=== PATIENT | female | born 1990 | race Caucasian/White ===

== ENCOUNTER 2016-02-21 13:37 | Emergency (ER) | payer BC, OTHER ==
[~2016-02-21] VITALS: Ht 170.2 cm; Wt 115.3 kg
[~2016-02-21 13:37] MED LIST: CLOMID PO; LEVE750T PO
[2016-02-21 13:40] VITALS: TEMP 36.8; Ht 170.2 cm; Wt 115.3 kg
[2016-02-21] MEDS ORDERED: CLOM25CA2 PO (13:52)
[2016-02-21 14:47] LABS: URINE APPEARANCE CLEAR (CLEAR); URINE BILIRUBIN NEG (NEG); URINE COLOR DK YELLOW; URINE EPITHELIAL CELL AUTO >30 /lpf (0-5); URINE NITRITE NEG (NEG); URINE PH 6.5 (4.5-7.5); URINE SPECIFIC GRAVITY 1.025 (1.000-1.030); UROBILINOGEN NEG (NEG); ZZUR CULT IF INDIC CLEAN CATCH YES
[2016-02-21 14:51] LABS: MANUAL MICROSCOPIC REQUIRED? NO; REVIEW REQ? YES
[2016-02-21 14:58] LABS: BASO % 0.3 %; BASO ABS # 0.02 K/uL (0-0.2); COMPLETE YES; EOS % 1.6 %; HEMATOCRIT 42.7 % (37-47); IG% 0.2 %; LYMPH ABS # 2.47 K/uL (1.2-3.4); MEAN CELL VOLUME 86.4 fL (80-100); MEAN CORPUSCULAR HEMOGLOBIN 29.4 pg (25-34); MEAN PLATELET VOLUME 13.1 fL (7.4-10.4); MONO % 7.3 %; NEUT % 47.6 %; PLATELET COUNT 198 K/uL (130-400); RED BLOOD COUNT 4.94 M/uL (4.2-5.4); WHITE BLOOD COUNT 5.75 K/uL (4.8-10.8)
[2016-02-21] MEDS ORDERED: GI COCKTAIL PO STA (15:04)
[2016-02-21] MEDS ORDERED: SODIUM CHLORIDE 0.9% 1000ML 1,000 ML IV STA (15:04)
[2016-02-21] MEDS ORDERED: CEFTRIAXONE SOD INJ 1 GM ADDVIAL IV STA (15:04)
--- NOTE | 2016-02-21 15:08 | EMERGENCY ROOM VISIT NOTE ---
History Report prepared by Hilda: Chandan Reina Under the Supervision of: Dr. Adama Webster M.D. First contact with patient: 14:00 Chief Complaint: ABDOMINAL PAIN Stated Complaint: ABD PAIN Nursing Triage Summary: Pt presents with right sided abd pain with nausea. Pain radiates to back. Burning with urination, urgency. Sx began 2 days ago. History of Present Illness The patient is a 25 year old female who presents to the Emergency Room with complaints of worsening waxing and waning right upper quadrant abdominal pain for the past two days. The patient currently rates her discomfort as a 6/10 in severity. She additionally states that she has had some nausea. The patient denies any vomiting, diarrhea, or fever. The patient states that she has recently increased her dosage of Clomid to try to increase her fertility. The patient states that she has a history of a cholecystectomy and seizures when she was younger. She states that nothing makes it better or worse. She additionally states that she has had a decrease in appetite. Source of History: patient Onset: two days ago Position: abdomen (RUQ) Symptom Intensity: 6/10 Timing: waxes/wanes Associated Symptoms: + nausea, No diarrhea, No fevers, No vomiting Review of Systems See HPI for pertinent positives & negatives. A total of 10 systems reviewed and were otherwise negative. Past Medical & Surgical Medical Problems: (1) Compression fracture of lumbar spine (2) Generalized epilepsy (3) Polycystic kidney disease, adult type Family History FHx: cancer FHx: diabetes FHx: gallbladder disease FHx: heart disease FHx: hypertension FHx: kidney disease/stones FHx: seizures Social History Smoking Status: Never Smoker Alcohol Use: none Marital Status: in relationship Housing Status: lives with family Occupation Status: employed, student Current/Historical Medications Scheduled Clomipramine Hcl (Clomipramine Hcl), 100 MG PO UD Famotidine (Pepcid), 40 MG PO HS Sulfa/Trimethoprim (Bactrim Ds 800MG/160MG), 1 TAB PO BID Allergies Coded Allergies: Aspirin (Verified Allergy, Intermediate, ITCHING, 02/21/16) Prochlorperazine (Verified Allergy, Mild, Itching, hives, n/v, 02/21/16) Physical Exam Vital Signs Date Time Temp Pulse Resp B/P Pulse Ox O2 Delivery O2 Flow Rate FiO2 02/21/16 16:45 79 18 125/72 99 Room Air 02/21/16 16:26 73 02/21/16 15:19 80 16 127/72 99 Room Air 02/21/16 13:40 36.8 88 18 120/82 98 Room Air Physical Exam GENERAL: Patient is a healthy-appearing well-nourished HEAD: Normocephalic atraumatic EYES: Ocular movements intact pupils equal and react to light OROPHARYNX mucous membranes are moist no exudates present no erythema or edema present NECK: Supple no nuchal rigidity CHEST: Good equal expansion LUNGS: Clear and equal to auscultation CARDIAC: Normal S1 and S2 ABDOMEN: Mild tenderness in the epigastric region. Soft no guarding BACK: No CVA tenderness EXTREMITIES: No pain upon palpation normal muscle strength in all groups no clubbing cyanosis or edema NEURO: Patient is following commands is answering questions appropriately. Alert and oriented x3 Cranial Nerves 2-12 grossly intact Medical Decision & Procedures ER Provider Diagnostic Interpretation: CT results as stated below per my review and radiologist interpretation: CT SCAN OF THE BRAIN WITHOUT IV CONTRAST CLINICAL HISTORY: Change in mental status. Amnesia. COMPARISON STUDY: CT of the brain dated 01/08/2013. TECHNIQUE: Unenhanced axial CT scan of the brain is performed from the vertex to the skull base. Automated dose control exposure was utilized. CT DOSE: 537.48 mGy.cm FINDINGS: Brain parenchyma: The brain parenchyma is normal in appearance. There is no hemorrhage, mass effect, or evidence of acute territorial ischemia by CT criteria. Luis-white matter is preserved. No extra-axial fluid collection is seen. A coarse calcification is again noted in the left cerebellar hemisphere, unchanged from previous. Ventricles, sulci, cisterns: Normal in configuration. Intracranial vasculature: The visualized intracranial vasculature at the skull base is normal in appearance. Calvarium: Unremarkable. Sinuses and mastoids: The visualized paranasal sinuses are clear. The mastoid air cells are well pneumatized. Orbits: The bony orbits are grossly intact. IMPRESSION: No acute intracranial abnormality. Electronically signed by: Lenard Burrell M.D. 02/21/2016 4:18 PM Dictated Date/Time: 02/21/2016 4:[address] SCAN OF THE ABDOMEN AND PELVIS WITH IV CONTRAST CLINICAL HISTORY: Epigastric abdominal pain. COMPARISON STUDY: Abdominal CT scans dated 08/03/2015 and 08/05/2012. TECHNIQUE: Following the IV administration of 116 cc of Optiray 320, CT scan of the abdomen and pelvis is performed from the lung bases to the proximal femora. Images are reviewed in the axial, sagittal, and coronal planes. IV contrast was administered without complication. Automated dose control exposure was utilized. The examination is mildly degraded by large body habitus, and by streak artifact from the patient's body wall abutting the CT gantry. CT DOSE: 1122.60 mGy.cm FINDINGS: Lung bases: The heart is normal in size and without pericardial effusion. The lung bases are clear. Liver: The contrast-enhanced liver is enlarged, measuring 20 cm in craniocaudal length. The liver demonstrates diffusely diminished attenuation consistent with hepatic steatosis. There is no intrahepatic biliary ductal dilatation. The hepatic veins and portal veins are patent. Gallbladder: Surgically absent noting clips in the gallbladder fossa. Spleen: Normal in size and attenuation. Pancreas: Unremarkable. Adrenal glands: Unremarkable. Kidneys: The contrast enhanced kidneys are mildly enlarged and without hydronephrosis. The kidneys enhance symmetrically. There are numerous (greater than 30) bilateral renal cysts measuring up to 3.9 cm. Numerous additional subcentimeter cortical hypodensities also likely represent cysts but are too small for definitive characterization. Some of these contain small internal calcifications. A nonobstructing calculus is present in the left lower pole. Abdominal vasculature: The abdominal aorta is normal in course and caliber. Bowel: The small bowel and colon are normal in course and caliber. The appendix is well-visualized and normal. Peritoneum: There is no intraperitoneal free air or abdominal ascites. There is a fat-containing umbilical hernia. Lymphadenopathy: None. Pelvic viscera: The bladder, uterus, and adnexa are normal as visualized. Bilateral ovarian follicles are noted. There is trace free fluid in the cul-de-sac. Skeletal structures: No lytic or blastic lesions are seen. Mild anterior wedging of several lower thoracic vertebral bodies is again noted. IMPRESSION: 1. There are no acute infectious or inflammatory findings in the abdomen or pelvis. 2. There are numerous bilateral renal cysts and too small to characterize cortical hypodensities. These are much greater in number the expected for age, and some of these have increased in size from the 08/03/2015 examination. The overall appearance remains highly concerning for autosomal dominant polycystic kidney disease. 3. Hepatomegaly and hepatic steatosis. 4. There is trace free fluid in the cul-de-sac, likely within physiologic limits. Electronically signed by: Lenard Burrell M.D. 02/21/2016 4:29 PM Dictated Date/Time: 02/21/2016 4:23 PM Laboratory Results 02/21/16 13:55 Red Blood Count 4.94, Mean Corpuscular Volume 86.4, Mean Corpuscular Hemoglobin 29.4, Mean Corpuscular Hemoglobin Concent 34.0, Mean Platelet Volume 13.1, Neutrophils (%) (Auto) 47.6, Lymphocytes (%) (Auto) 43.0, Monocytes (%) (Auto) 7.3, Eosinophils (%) (Auto) 1.6, Basophils (%) (Auto) 0.3, Neutrophils # (Auto) 2.74, Lymphocytes # (Auto) 2.47, Monocytes # (Auto) 0.42, Eosinophils # (Auto) 0.09, Basophils # (Auto) 0.02 02/21/16 13:55 Test 02/21/16 13:55 02/21/16 14:15 White Blood Count 5.75 K/uL (4.8-10.8) Red Blood Count 4.94 M/uL (4.2-5.4) Hemoglobin 14.5 g/dL (12.0-16.0) Hematocrit 42.7 % (37-47) Mean Corpuscular Volume 86.4 fL (80-100) Mean Corpuscular Hemoglobin 29.4 pg (25-34) Mean Corpuscular Hemoglobin Concent 34.0 g/dl (32-36) Platelet Count 198 K/uL (130-400) Mean Platelet Volume 13.1 fL (7.4-10.4) Neutrophils (%) (Auto) 47.6 % Lymphocytes (%) (Auto) 43.0 % Monocytes (%) (Auto) 7.3 % Eosinophils (%) (Auto) 1.6 % Basophils (%) (Auto) 0.3 % Neutrophils # (Auto) 2.74 K/uL (1.4-6.5) Lymphocytes # (Auto) 2.47 K/uL (1.2-3.4) Monocytes # (Auto) 0.42 K/uL (0.11-0.59) Eosinophils # (Auto) 0.09 K/uL (0-0.5) Basophils # (Auto) 0.02 K/uL (0-0.2) RDW Standard Deviation 41.2 fL (36.4-46.3) RDW Coefficient of Variation 12.9 % (11.5-14.5) Immature Granulocyte % (Auto) 0.2 % Immature Granulocyte # (Auto) 0.01 K/uL (0.00-0.02) Anion Gap 11.0 mmol/L (3-11) Est Creatinine Clear Calc Drug Dose 172.4 ml/min Estimated GFR () 143.3 Estimated GFR (Non- 123.6 BUN/Creatinine Ratio 16.7 (10-20) Calcium Level 9.2 mg/dl (8.5-10.1) Total Bilirubin 0.3 mg/dl (0.2-1) Direct Bilirubin < 0.1 mg/dl (0-0.2) Aspartate Amino Transf (AST/SGOT) 19 U/L (15-37) Alanine Aminotransferase (ALT/SGPT) 49 U/L (12-78) Alkaline Phosphatase 73 U/L (45-117) Total Protein 7.2 gm/dl (6.4-8.2) Albumin 3.7 gm/dl (3.4-5.0) Lipase 143 U/L (73-393) Urine Color DK YELLOW Urine Appearance CLEAR (CLEAR) Urine pH 6.5 (4.5-7.5) Urine Specific [place] 1.025 (1.000-1.030) Urine Protein NEG (NEG) Urine Glucose (UA) NEG (NEG) Urine Ketones NEG (NEG) Urine Occult Blood NEG (NEG) Urine Nitrite NEG (NEG) Urine Bilirubin NEG (NEG) Urine Urobilinogen NEG (NEG) Urine Leukocyte Esterase SMALL (NEG) Urine WBC (Auto) 10-30 /hpf (0-5) Urine RBC (Auto) 0-4 /hpf (0-4) Urine Hyaline Casts (Auto) 10-30 /lpf (0-5) Urine Epithelial Cells (Auto) >30 /lpf (0-5) Urine Bacteria (Auto) 1+ (NEG) Urine Yeast (Auto) (NONE PRSENT) Urine Test NEG (NEG) Labs reviewed by ED physician. Medications Administered Medications (Trade) Dose Ordered Sig/Piper Route Start Time Stop Time Status Last Admin Dose Admin Famotidine (Pepcid Tab) 20 mg NOW ONCE PO 02/21/16 15:15 02/21/16 15:16 DC 02/21/16 15:22 20 MG Sucralfate (Carafate Tab) 1 gm NOW ONCE PO 02/21/16 15:15 02/21/16 15:16 DC 02/21/16 15:23 1 GM Ceftriaxone Sodium 1 gm 1 gm NOW STAT IV 02/21/16 15:04 02/21/16 15:07 DC 02/21/16 15:23 1 GM Sodium Chloride (Nss 1000ml) 1,000 ml @ 999 mls/hr Q1H1M STAT IV 02/21/16 15:04 02/21/16 16:04 DC 02/21/16 15:24 999 MLS/HR Al Hydroxide/Mg Hydroxide (Maalox Susp) 30 ml STK-MED ONCE .ROUTE 02/21/16 15:15 02/21/16 15:17 DC 02/21/16 15:23 30 ML Lidocaine HCl (Viscous Lidocaine 2% Soln) 20 ml STK-MED ONCE .ROUTE 02/21/16 15:16 02/21/16 15:17 DC 02/21/16 15:22 20 ML ECG Indication: abdominal pain Rate (beats per minute): 58 Rhythm: sinus bradycardia Findings: no acute ischemic change, no ectopy ED Course 1450: Past medical records reviewed. The patient was evaluated in room B5. A complete history and physical examination was performed. 1504: Sodium Chloride 1000 ml @ 999 mls/hr IV, Rocephin Inj 1 gm IV, GI Cocktail 24ml PO 1515: Carafate Tab 1 gm PO, Pepcid Tab 20mg PO 1516: Viscous Lidocaine 2% Soln 20ml 1659: Upon reexamination the patient is resting. I discussed results and treatment plan with the patient. She verbalizes agreement and understanding. The patient is ready for discharge. Medical Decision Differential diagnosis: Etiologies such as appendicitis, diverticulitis, PUD, biliary pathology, UTI, pancreatitis, obstruction, mesenteric ischemia, aortic pathology, infections, inflammatory bowel disease, renal colic, as well as others were entertained. This is a 25-year-old female who presents emergency department complaining of multiple complaints. The patient reports she had. Amnesia last night where she does not remember anything. She does have a remote history of seizures in the past. I believe this could possibly be from the patient being half-asleep however she was sent for CAT scan of the which didn't show any evidence of acute injury. The patient regardless is at her baseline now and I feel can probably follow up with neurology. In addition the patient is also complaining of epigastric pain. CT of the abdomen pelvis does not show any acute process however she was given GI cocktail, Pepcid and Carafate in the emergency department. Repeat examination revealed much improvement the patient's symptoms. I do feel that the patient can most likely be sent home on a GI cocktail along with a clear liquid diet for the next 48 hours. I will start the patient on antibiotic for her urinary tract infection. In addition she will also be placed on Bactrim. Patient is in agreement with the treatment plan. Impression Primary Impression: UTI (urinary tract infection) Additional Impressions: Epigastric pain Autosomal dominant polycystic kidney disease Scribe Attestation The scribe's documentation has been prepared under my direction and personally reviewed by me in its entirety. I confirm that the note above accurately reflects all work, treatment, procedures, and medical decision making performed by me. Departure Information Dispostion Home / Self-Care Prescriptions Famotidine (Pepcid) 40 Mg Tab 40 MG PO HS for 10 Days, #10 TAB Prov: Adama Webster MD 02/21/16 Sulfa/Trimethoprim (Bactrim Ds 800MG/160MG) Tab 1 TAB PO BID for 7 Days, #14 TAB Prov: Adama Webster MD 02/21/16 Referrals Deni Santiago JR., M.D. (PCP) Forms HOME CARE DOCUMENTATION FORM, IMPORTANT VISIT INFORMATION Patient Instructions ED Diet Clear Liquid, ED Epigastric Pain UKO, ED UTI Cystitis Female, [facility] Additional Instructions Take 5 ml Maalox before every meal and at bedtime Clear liquid diet next 48 hours Follow up with Tasha's office for syncopal episode Follow up with Dr Contreras's office for continued abd pain You have been examined and treated today on an emergency basis only. This is not a substitute for, or an effort to provide, complete comprehensive medical care. It is impossible to recognize and treat all injuries or illnesses in a single emergency department visit. It is therefore important that you follow up closely with Dr Santiago. Call as soon as possible for an appointment. Thank you for your time and consideration. I look forward to speaking with you again soon. Please don't hesitate to call us if you have any questions. Problem Qualifiers Primary Impression: UTI (urinary tract infection) Urinary tract infection type: acute cystitis Hematuria presence: without hematuria Qualified Codes: N30.00 - Acute cystitis without hematuria
[2016-02-21 15:11] LABS: ALT/SGPT 49 U/L (12-78); BLOOD UREA NITROGEN 11 mg/dl (7-18); BUN/CREATININE RATIO 16.7 (10-20); CALCIUM 9.2 mg/dl (8.5-10.1); CARBON DIOXIDE 27 mmol/L (21-32); CHLORIDE 107 mmol/L (98-107); CREATININE 0.66 mg/dl (0.60-1.20); GLUCOSE 95 mg/dl (70-99); POTASSIUM 3.8 mmol/L (3.5-5.1); SODIUM 145 mmol/L (136-145)
[2016-02-21 15:14] LABS: ALKALINE PHOSPHATASE 73 U/L (45-117); AST/SGOT 19 U/L (15-37)
[2016-02-21] MEDS ORDERED: SUCRALFATE 1 GM TAB PO ONE (15:15)
[2016-02-21] MEDS ORDERED: ALUMINUM/MAGNESIUM SUSP 30 ML UDC ONE (15:15)
[2016-02-21] MEDS ORDERED: FAMOTIDINE 20 MG TAB PO ONE (15:15)
[2016-02-21] MEDS ORDERED: LIDOCAINE HCL 2% VISC SOLN 20 ML UDC ONE (15:16)
[2016-02-21] MEDS ORDERED: OPTIRAY 320 IV PRN (15:30)
--- NOTE | 2016-02-21 16:20 | DIAGNOSTIC IMAGING REPORT ---
CT SCAN OF THE BRAIN WITHOUT IV CONTRAST CLINICAL HISTORY: Change in mental status. Amnesia. COMPARISON STUDY: CT of the brain dated 01/08/2013. TECHNIQUE: Unenhanced axial CT scan of the brain is performed from the vertex to the skull base. Automated dose control exposure was utilized. CT DOSE: 537.48 mGy.cm FINDINGS: Brain parenchyma: The brain parenchyma is normal in appearance. There is no hemorrhage, mass effect, or evidence of acute territorial ischemia by CT criteria. Luis-white matter is preserved. No extra-axial fluid collection is seen. A coarse calcification is again noted in the left cerebellar hemisphere, unchanged from previous. Ventricles, sulci, cisterns: Normal in configuration. Intracranial vasculature: The visualized intracranial vasculature at the skull base is normal in appearance. Calvarium: Unremarkable. Sinuses and mastoids: The visualized paranasal sinuses are clear. The mastoid air cells are well pneumatized. Orbits: The bony orbits are grossly intact. IMPRESSION: No acute intracranial abnormality. Electronically signed by: Lenard Burrell M.D. 02/21/2016 4:18 PM Dictated Date/Time: 02/21/2016 4:16 PM
--- NOTE | 2016-02-21 16:30 | DIAGNOSTIC IMAGING REPORT ---
CT SCAN OF THE ABDOMEN AND PELVIS WITH IV CONTRAST CLINICAL HISTORY: Epigastric abdominal pain. COMPARISON STUDY: Abdominal CT scans dated 08/03/2015 and 08/05/2012. TECHNIQUE: Following the IV administration of 116 cc of Optiray 320, CT scan of the abdomen and pelvis is performed from the lung bases to the proximal femora. Images are reviewed in the axial, sagittal, and coronal planes. IV contrast was administered without complication. Automated dose control exposure was utilized. The examination is mildly degraded by large body habitus, and by streak artifact from the patient's body wall abutting the CT gantry. CT DOSE: 1122.60 mGy.cm FINDINGS: Lung bases: The heart is normal in size and without pericardial effusion. The lung bases are clear. Liver: The contrast-enhanced liver is enlarged, measuring 20 cm in craniocaudal length. The liver demonstrates diffusely diminished attenuation consistent with hepatic steatosis. There is no intrahepatic biliary ductal dilatation. The hepatic veins and portal veins are patent. Gallbladder: Surgically absent noting clips in the gallbladder fossa. Spleen: Normal in size and attenuation. Pancreas: Unremarkable. Adrenal glands: Unremarkable. Kidneys: The contrast enhanced kidneys are mildly enlarged and without hydronephrosis. The kidneys enhance symmetrically. There are numerous (greater than 30) bilateral renal cysts measuring up to 3.9 cm. Numerous additional subcentimeter cortical hypodensities also likely represent cysts but are too small for definitive characterization. Some of these contain small internal calcifications. A nonobstructing calculus is present in the left lower pole. Abdominal vasculature: The abdominal aorta is normal in course and caliber. Bowel: The small bowel and colon are normal in course and caliber. The appendix is well-visualized and normal. Peritoneum: There is no intraperitoneal free air or abdominal ascites. There is a fat-containing umbilical hernia. Lymphadenopathy: None. Pelvic viscera: The bladder, uterus, and adnexa are normal as visualized. Bilateral ovarian follicles are noted. There is trace free fluid in the cul-de-sac. Skeletal structures: No lytic or blastic lesions are seen. Mild anterior wedging of several lower thoracic vertebral bodies is again noted. IMPRESSION: 1. There are no acute infectious or inflammatory findings in the abdomen or pelvis. 2. There are numerous bilateral renal cysts and too small to characterize cortical hypodensities. These are much greater in number the expected for age, and some of these have increased in size from the 08/03/2015 examination. The overall appearance remains highly concerning for autosomal dominant polycystic kidney disease. 3. Hepatomegaly and hepatic steatosis. 4. There is trace free fluid in the cul-de-sac, likely within physiologic limits. Electronically signed by: Lenard Burrell M.D. 02/21/2016 4:29 PM Dictated Date/Time: 02/21/2016 4:23 PM
[2016-02-21 16:45] VITALS: BP 125/72; PULSE 79; O2SAT 99
[2016-02-21] MEDS ORDERED: FAMO40TA6 PO (16:57)
[2016-02-21] MEDS ORDERED: SULF800T23 PO (16:57)
== END 2016-02-21 17:14 | disposition home or self-care (01) ==
LOC: C.EDB 13:38
DX: N39.0 Urinary tract infection, site not specified (principal); R10.13 Epigastric pain; Q61.2 Polycystic kidney, adult type; G40.909 Epilepsy, unspecified, not intractable, without status epilepticus; Z83.3 Family history of diabetes mellitus; Z82.49 Family history of ischemic heart disease and other diseases of the circulatory system; Z82.0 Family history of epilepsy and other diseases of the nervous system; Z79.899 Other long term (current) drug therapy

== ENCOUNTER 2016-10-14 13:41 | Emergency (ER) | payer OTHER ==
[~2016-10-14] VITALS: Ht 170.2 cm; Wt 118.0 kg
[~2016-10-14 13:41] MED LIST changes: +CLOM25CA2 PO; -CLOMID PO; -LEVE750T PO
[2016-10-14 13:47] VITALS: TEMP 36.5; O2SAT 99; Ht 170.2 cm; Wt 118.0 kg
[2016-10-14] MEDS ORDERED: IBUPROFEN 600 MG TAB PO STA (14:16)
[2016-10-14 14:58] VITALS: BP 128/94; PULSE 89
--- NOTE | 2016-10-14 15:40 | EMERGENCY ROOM VISIT NOTE ---
ED Visit Note First contact with patient: 13:59 CHIEF COMPLAINT: Bee sting HISTORY OF PRESENT ILLNESS: This 25-year-old female patient presents to the emergency department after sustaining a bumble bee sting to the left side of face while at work approximately one hour prior to arrival in the emergency department today. The patient complains of swelling and 3/10 pain over the site. The patient also notes redness surrounding the area. No other stings sustained. The stinger is not in place. The patient denies hives, perioral numbness or tingling, throat, tongue, or lip swelling or difficulty breathing. She became concerned, as she apparently does have a history of anaphylaxis or allergies to yellow jackets as a child, however, the patient is uncertain which. She does deny anaphylaxis symptoms as a child. The patient states normally, when she gets stung, she is able to take Benadryl and her symptoms go away relatively quickly. The patient states she was at work today, so do not have access to Benadryl. She did come in by ambulance. She has taken nothing for pain or swelling. No other complaints. REVIEW OF SYSTEMS: A 10 system review of systems was performed with positives and pertinent negatives listed in the history of present illness. All other systems were reviewed and are negative. ALLERGIES: Aspirin, Compazine, yellow jackets MEDICATIONS: None PMH: Polycystic kidney disease PHYSICAL EXAM: Vital Signs reviewed, see Nurse's notes, vital signs stable. GENERAL: This is a 25-year-old female, alert, oriented, no acute distress, and cooperative. HEENT: Normocephalic, atraumatic, no facial edema. Lips, tongue, and mucosa normal. NECK: No stridor. RESPIRATORY: Clear to auscultation. No wheezes, rhonchi, or rales. No difficulty with breathing noted. CARDIAC: RRR, no murmurs, gallops, or rubs noted. No tachycardia noted. SKIN: There is an very mild, erythematous, minimally tender, minimally indurated area located on the patient's left forehead. No significant rashes or urticaria noted. The stinger is not in place. No purulent drainage or signs of infection. NEURO: Pt. alert and oriented to person, place, time, event. Normal sensation to light and sharp touch. No focal neurological deficits. EMERGENCY DEPARTMENT COURSE AND DECISION MAKING: I examined the patient. The patient presented with an isolated hymenopteran envenomation. Differential diagnosis includes local reaction, anaphylactic reaction, infection, as well as other pathologies. The physical is benign and this appears to be isolated to a local reaction. ER Treatment: Diphenhydramine 50mg PO and ibuprofen 600mg PO. The patient was observed for 90 minutes with no adverse reaction or suspicions for anaphylaxis. Discharge instructions reviewed. The patient was discharged home in stable condition. DIAGNOSIS: Hymenopteran envenomation DISCHARGE INSTRUCTIONS: You should take Benadryl (diphenhydramine) 50 mgs every 6 hours for the next 3 days. You can find this medicine [id number]. Benadryl can help reduce your symptoms. You should take it for the next 3 days or until your symptoms have subsided. Be aware that Benadryl can make you drowsy. Ibuprofen(Motrin, Advil) may be used for fever or pain. Use 600mg every six hours as needed. Take with food. Avoid using more than 2400mg in a 24 hour period. Do not use 2400mg per day for more than three consecutive days without physician direction. Prolonged inappropriate use can lead to stomach upset or ulcers. (AND/OR) Acetaminophen(Tylenol) may be used for fever or pain. Use 1000mg every six hours as needed. Avoid using more than 3000mg in a 24 hour period. Return to the emergency department for any difficulty breathing, swelling of the lips, numbness or tingling, blue extremities, dizziness, passing out, increased swelling, redness, or purulent drainage from the site of the sting or other associated symptoms. Follow-up with your PCP or your worker's comp in 2-3 days for recheck. Problem List Medical Problems: (1) Compression fracture of lumbar spine Status: Chronic (2) Generalized epilepsy Status: Chronic (3) Polycystic kidney disease, adult type Status: Chronic Current/Historical Medications No Active Prescriptions or Reported Meds Allergies Coded Allergies: Aspirin (Verified Allergy, Intermediate, ITCHING, 10/14/16) Prochlorperazine (Verified Allergy, Mild, Itching, hives, n/v, 10/14/16) Vital Signs Date Time Temp Pulse Resp B/P (MAP) Pulse Ox O2 Delivery O2 Flow Rate FiO2 10/14/16 14:58 89 16 128/94 10/14/16 13:47 36.5 102 16 142/79 99 Room Air Medications Administered Medications (Trade) Dose Ordered Sig/Piper Route Start Time Stop Time Status Last Admin Dose Admin Diphenhydramine HCl (Benadryl Cap) 50 mg NOW ONCE PO 10/14/16 14:30 10/14/16 14:31 DC 10/14/16 14:58 50 MG Ibuprofen (Motrin Tab) 600 mg NOW STAT PO 10/14/16 14:16 10/14/16 14:17 DC 10/14/16 14:58 600 MG Departure Information Impression Primary Impression: Bee sting Dispostion Home / Self-Care Condition GOOD Prescriptions No Active Prescriptions or Reported Meds Referrals Jame Rosen M.D. (PCP) Patient Instructions ED Bite Sting Insect Local Allergic React, My [facility] Additional Instructions You should take Benadryl (diphenhydramine) 50 mgs every 6 hours for the next 3 days. You can find this medicine [id number]. Benadryl can help reduce your symptoms. You should take it for the next 3 days or until your symptoms have subsided. Be aware that Benadryl can make you drowsy. Ibuprofen(Motrin, Advil) may be used for fever or pain. Use 600mg every six hours as needed. Take with food. Avoid using more than 2400mg in a 24 hour period. Do not use 2400mg per day for more than three consecutive days without physician direction. Prolonged inappropriate use can lead to stomach upset or ulcers. (AND/OR) Acetaminophen(Tylenol) may be used for fever or pain. Use 1000mg every six hours as needed. Avoid using more than 3000mg in a 24 hour period. Return to the emergency department for any difficulty breathing, swelling of the lips, numbness or tingling, blue extremities, dizziness, passing out, increased swelling, redness, or purulent drainage from the site of the sting or other associated symptoms. Follow-up with your PCP or your worker's comp in 2-3 days for recheck. Work Instructions Return To Work: 1 day Lifting Limitations: none Problem Qualifiers Primary Impression: Bee sting Encounter type: initial encounter Injury intent: accidental or unintentional Qualified Codes: T63.441A - Toxic effect of venom of bees, accidental (unintentional), initial encounter
== END 2016-10-14 15:40 | disposition home or self-care (01) ==
LOC: C.EDD 13:41 → EDBD 13:41 → C.EDD 15:40
DX: T63.441A Toxic effect of venom of bees, accidental (unintentional), initial encounter (principal); Q61.2 Polycystic kidney, adult type; G40.909 Epilepsy, unspecified, not intractable, without status epilepticus

== ENCOUNTER → 2017-02-14 | Outpatient (CLI) | payer OTHER | END | disposition home or self-care (01) | LOC: C.CPL 13:54 | PROVIDERS: ATTEND Obstetrics & Gynecology | DX: O09.892 Supervision of other high risk pregnancies, second trimester (principal) ==